=== PATIENT | female | born 1950 | race Caucasian/White ===

== ENCOUNTER 2017-01-23 08:28 | Day surgery (SDC) | payer MEDICARE, OTHER ==
[~2017-01-23 08:28] MED LIST: FENTANYL 250 MCG/5 ML AMP IV PRN; LACTATED RINGERS 1,000 ML IV SCH; LIDOCAINE Viscous 2% 15 ML UDCUP PO PRN; MIDAZOLAM HCL 5 MG/5 ML VIAL IV PRN
[2017-01-23] MEDS ORDERED: IV START KIT ONE (09:06)
[2017-01-23] MEDS ORDERED: LACTATED RINGERS 1,000 ML ONE (09:06)
[2017-01-23] MEDS ORDERED: MIDAZOLAM HCL 5 MG/5 ML VIAL ONE (09:29)
[2017-01-23] MEDS ORDERED: LIDOCAINE Viscous 2% 15 ML UDCUP ONE (09:29)
[2017-01-23] MEDS ORDERED: FENTANYL 100 MCG/2 ML VIAL ONE (09:29)
[2017-01-23 15:24] LABS: HELICOBACTER PYLORII DETECTION NEGATIVE (NEGATIVE)
--- NOTE | 2017-01-25 09:48 | SURGPATH ---
[facility] [address] [place] [id number] Patient Name: PATRICE NICOLE MR#: [id number] : 1950 Gender: F Specimen #: [id number] Collected: 01/23/2017 Received: 01/24/2017 Reported: 01/25/2017 Submitting Phys: ADRY SCHMITZ Copy To Phys: GARY MARTINEZ [facility] Clinical History / Pre-Operative Diagnosis: DYSPHAGIA; HEARTBURN; NAUSEA AND VOMITING; HISTORY OF ESOPHAGEAL STRICTURE; RULE OUT GIARDIA, CELIAC SPRUE AND GASTRITIS Specimen Source / Surgical Procedure Performed: #1-DUODENAL BIOPSY; #2-ANTRAL BIOPSY Interpretation: 1. DUODENUM, BIOPSY: - NO PATHOLOGIC ABNORMALITIES 2. GASTRIC ANTRUM, BIOPSY: - NO PATHOLOGIC ABNORMALITIES Electronically Signed Out Benjamin Krueger M.D. Gross Description: #1 The specimen is received in a formalin filled container labeled with the patient's name and "duodenal biopsy". Two tate biopsies are 0.4 and 0.5 cm. Totally embedded in cassette #1. #2 The specimen is received in a formalin filled container labeled with the patient's name and "antral biopsy". Two tate biopsies are each 0.5 cm. Totally embedded in cassette #2. Nilda Murrieta Microscopic Description: 1. The sections show fragments of small bowel mucosa exhibiting a normal architectural pattern without evidence of villous blunting. There are no inflammatory or neoplastic features and there are no microorganisms identified. 2. The sections show fragments of gastric mucosa exhibiting a normal architectural pattern. There are no inflammatory or neoplastic features and there are no Helicobacter-like organisms identified. 1: 21033 2: 55871 R11.2
== END 2017-01-23 11:04 | disposition home or self-care (01) ==
LOC: SDC 08:28
PROVIDERS: ATTEND Internal Medicine Gastroenterology
PROC: 0D738ZZ Dilation of Lower Esophagus, Via Natural or Artificial Opening Endoscopic (ICD-10-PCS; principal; 2017-01-23)
PROC: 0DB98ZX Excision of Duodenum, Via Natural or Artificial Opening Endoscopic, Diagnostic (ICD-10-PCS; 2017-01-23)
PROC: 0DB68ZX Excision of Stomach, Via Natural or Artificial Opening Endoscopic, Diagnostic (ICD-10-PCS; 2017-01-23)
DX: K22.2 Esophageal obstruction (principal); K29.70 Gastritis, unspecified, without bleeding; K29.80 Duodenitis without bleeding; M81.0 Age-related osteoporosis without current pathological fracture; E03.9 Hypothyroidism, unspecified; M79.7 Fibromyalgia; Z88.5 Allergy status to narcotic agent; Z88.8 Allergy status to other drugs, medicaments and biological substances